=== PATIENT | male | born 1965 | race Caucasian/White ===

== ENCOUNTER 2018-09-20 08:17 | Day surgery (SDC) | payer OTHER ==
[2018-09-19 09:45] VITALS: BMI 43.7
[2018-09-20] MEDS ORDERED: PROPOFOL 200 MG/20 ML VIAL ONE (11:01)
[2018-09-20] MEDS ORDERED: ePHEDrine 50 MG/ML VIAL ONE (11:01)
[2018-09-20] MEDS ORDERED: Lidocaine 1% PF 5 ML VIAL ONE (11:01)
[2018-09-20] MEDS ORDERED: Glycopyrrolate 0.2 MG/ML 5 ML SYRINGE ONE (11:01)
--- NOTE | 2018-09-20 13:28 | OP ---
DATE OF PROCEDURE: 09/20/2018 PROCEDURE PERFORMED: Colonoscopy with polypectomy. INDICATION FOR PROCEDURE: Screening for malignant neoplasm of the colon (average risk), family history of colonic polyps. DESCRIPTION OF PROCEDURE: After the risks and benefits of the procedure were explained to the patient including risks of bleeding, infection, perforation, reactions to anesthesia, aspiration and/or pain, informed consent was obtained. The patient was then taken to the endoscopy suite, where deep sedation was administered via propofol and anesthesia support. Once adequate sedation was achieved, a digital rectal examination was performed followed by introduction of the standard colonoscope, which was then advanced to the terminal ileum with some difficulty requiring manual abdominal pressure to facilitate passage of the scope. The prep quality was good with a mild amount of adherent stool that was amenable to irrigation and suctioning. The patient tolerated the procedure well with no immediate perioperative complications. Upon conclusion of the procedure, all equipment was removed from the patient, and the patient was transferred to Day Stay in satisfactory condition. FINDINGS: Digital rectal exam, normal findings were seen on external examination. COLON FINDINGS: Normal-appearing mucosa was seen within the terminal ileum as well as at the ileocecal valve, appendiceal orifice, and within the cecum itself. A 5 to 6 mm sessile polyp was seen in the distal ascending colon and completely removed with snare cautery polypectomy. It was retrieved and placed in a specimen jar for evaluation. The mucosal defect made by the polypectomy was larger than expected, so a hemoclip x1 was placed across the mucosal defect with good hemostasis achieved. Normal-appearing mucosa was then seen within the transverse colon. A 3 mm polyp was seen in the descending colon and completely removed with snare cautery polypectomy. It was retrieved and placed in a specimen jar for evaluation. Two polyps measuring 3 to 6 mm in size were seen in the sigmoid colon and completely removed with snare cautery polypectomy. They were retrieved and placed in a specimen jar for evaluation. The larger polyp being pedunculated in form. A large amount of small and large mouth diverticula were seen within the sigmoid colon without evidence of increased erythema, purulence or ulceration. A 2 to 3 mm polyp was seen in the rectum and completely removed with snare cautery polypectomy. It was retrieved and placed in a specimen jar for evaluation. On rectal retroflexion, there were small hemorrhoids noted. IMPRESSION: 1. A 5 to 6 mm ascending colon polyp, status post snare cautery polypectomy and hemoclip placement x1. 2. A 3 to 4 mm descending colon polyp, status post snare cautery polypectomy. 3. Two sigmoid colon polyps measuring 3 to 6 mm in size, status post snare cautery polypectomy. 4. A 2 to 3 mm rectal polyps, status post snare cautery polypectomy. 5. Moderately severe sigmoid diverticulosis. 6. Small internal hemorrhoids. RECOMMENDATIONS: 1. We will follow up on the polyp results with repeat colonoscopy interval depending on pathology report, but likely to repeat in 3 years. 2. Would recommend higher fiber diet given the presence of internal hemorrhoids and diverticulosis. 3. Continue current medications. 4. Followup in the GI clinic as needed. Job ID: [id number]
== END 2018-09-20 13:29 | disposition home or self-care (01) ==
LOC: SDC 08:17
PROVIDERS: ATTEND Internal Medicine
PROC: 0DBM8ZX Excision of Descending Colon, Via Natural or Artificial Opening Endoscopic, Diagnostic (ICD-10-PCS; principal; 2018-09-20)
PROC: 0DBN8ZX Excision of Sigmoid Colon, Via Natural or Artificial Opening Endoscopic, Diagnostic (ICD-10-PCS; principal; 2018-09-20)
PROC: 0DBP8ZX Excision of Rectum, Via Natural or Artificial Opening Endoscopic, Diagnostic (ICD-10-PCS; principal; 2018-09-20)
PROC: 0DBK8ZX Excision of Ascending Colon, Via Natural or Artificial Opening Endoscopic, Diagnostic (ICD-10-PCS; principal; 2018-09-20)
DX: Z12.11 Encounter for screening for malignant neoplasm of colon (principal); D12.2 Benign neoplasm of ascending colon; D12.5 Benign neoplasm of sigmoid colon; K63.5 Polyp of colon; K62.1 Rectal polyp; K57.30 Diverticulosis of large intestine without perforation or abscess without bleeding; K64.8 Other hemorrhoids; Z83.71 Family history of colonic polyps; Z79.82 Long term (current) use of aspirin; Z79.84 Long term (current) use of oral hypoglycemic drugs; Z79.899 Other long term (current) drug therapy
CPT/HCPCS: 36416; 88305; J2001; J2704; J3490